=== PATIENT | female | born 1990 | race Caucasian/White ===

== ENCOUNTER → 2017-08-16 17:34 | Outpatient (CLI) | payer OTHER ==
[~2017-08-16 17:34] MED LIST: AMBIEN10 MG; CLONAZEPAM1 MG; LAMICTAL ODT25 MG; QUETIAPINE FUM100 MG; VALACYCLOVIR
== END | disposition home or self-care (01) ==
LOC: RAD 17:34
DX: M54.5 Low back pain (principal)